=== PATIENT | male | born 1965 | race African-American/Black ===

== ENCOUNTER 2019-04-24 11:59 | Inpatient (IN) | payer OTHER ==
[2019-04-24 13:20] VITALS: BMI 26.6
--- NOTE | 2019-04-24 15:31 | HP ---
COWS - Scale Resting Pulse: 0= ND 80 or Below Sweatin= Chills/Flushing Restless Observation: 0= Sits Still Pupil Size: 0= Normal to Room Light Bone or Joint Aches: 0= None Runny Nose/ Eye Tearin= Nasal Congestion GI Upset > 30mins: 0= None Tremor Observation: 0= None Yawning Observation: 0= None Anxiety or Irritability: 1=Feels Anxious/Irritable Goose Flesh Skin: 0=Smooth Skin COWS Score: 3 CIWA Score Nausea/Vomitin-No Nausea/No Vomiting Muscle Tremors: 1-None Visible, but [place] Anxiety: 0-No Anxiety, at Ease Agitation: 0-Normal Activity Paroxysmal Sweats: 1-Minimal Palms Moist Orientation: 0-Oriented Tacttile Disturbances: 0-None Auditory Disturbances: 0-None Visual Disturbances: 0-None Headache: 0-None Present CIWA-Ar Total Score: 2 - Admission Criteria OASAS Guidelines: Admission for Medically Managed Detox: Requires at least one of the followin. CIWA greater than 12 2. Seizures within the past 24 hours 3. Delirium tremens within the past 24 hours 4. Hallucinations within the past 24 hours 5. Acute intervention needed for co occurring medical disorder 6. Acute intervention needed for co occurring psychiatric disorder 7. Severe withdrawal that cannot be handled at a lower level of care (continued vomiting, continued diarrhea, abnormal vital signs) requiring intravenous medication and/or fluids 8. Admission [facility] [place] Chief Complaint: 52 y/o M with PMH IDDM w/neuropathy, anxiety, Hep C (was on med but self d/c) who presents for detox heroin, cocaine, alcohol and benzos. Allergies/Adverse Reactions: Allergies Allergy/AdvReac Type Severity Reaction Status Date / Time Penicillins Allergy Intermediate Rash Verified 04/24/19 13:02 History of Present Illness: 52 y/o M with PMH IDDM w/neuropathy (on invokamet, januvia, basaglar), anxiety, Hep C (currently not on tx; self d/c), who presents for detox heroin, cocaine, alcohol and benzos. Per pt, states that he last used heroin 2 days ago. Used 5 bags via inhalation. Used to use IVDA in RUE 10 yrs ago, but no longer does. Noticed pruritic rash on RUE, which is the same location that he used to inject in 10 yrs ago. Uses at least 6-8 bags daily. Longest sobriety 5 yrs. At the time , pt was involved in his NA group. States that once he got involved a relationship, he stopped going to meeting as frequently and stopped going to the gym, so it caused him to relapse. Has never been in a methadone program, but would like to join one. Uses street methadone 60-90 mg at a time, last use 2 days ago. Used 30mg. Used to use subutex in past. Last cocaine use 2 days ago used >1.5g via smoking. Uses 20-30 dollars / day, every day. Last drink was 2 days ago drank 1 pint of vodka. Drinks 1/2 pint of vodka every day. Has never had alcohol withdrawal sz. Has blacked out in past. Last used xanax 3 days ago 2.5mg worth. Bought from the street and mixes it with his heroin to "achieve a better high" via inhalation. Uses 2-3x / week. Patient's first visit here. Was at [facility] detox 2008. Was also detox at [facility] in past. After detox, pt would like to go to rehab and join a methadone maintenance program. Would also like to pursue culinary arts and/or maintenance, and get involved in meeting again. He has a past sponsor. PMH: as above PSxH: quyen finch (10 yrs ago) meds: ranitidine, invokamet, januvia, basaglar, atorvastatin, lyrica, ammonium lact 12% lotion allergies: PCN - hives FH: denies SH: has been homeless for 3.5 months. was living in a 3/4 house before. 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 smokes 10- 12 cigarettes/ day for 3-4 yrs. alcohol, cocaine, heroin, benzo use as above. Exam Limitations: No Limitations - Ebola screening Have you traveled outside of the country in the last 21 days: No Have you had contact with anyone from an Ebola affected area: No Do you have a fever: No - Review of Systems Constitutional: Night Sweats, Unintentional Wgt. Loss EENT: reports: Blurred Vision, Nose Congestion Respiratory: reports: No Symptoms reported Cardiac: reports: No Symptoms Reported GI: reports: Poor Appetite : reports: No Symptoms Reported Musculoskeletal: reports: Joint Pain Integumentary: reports: No Symptoms Reported Neuro: reports: Headache, Numbness Endocrine: reports: No Symptoms Reported Hematology: reports: No Symptoms Reported Psychiatric: reports: No Sypmtoms Reported Patient History - Patient Medical History Hx Anemia: No Hx Asthma: No Hx Chronic Obstructive Pulmonary Disease (COPD): No Hx Cancer: No Hx Cardiac Disorders: No Hx Congestive Heart Failure: No Hx Hypertension: No Hx Hypercholesterolemia: No Hx Pacemaker: No HX Cerebrovascular Accident: No Hx Seizures: No Hx Dementia: No Hx Diabetes: Yes Hx Gastrointestinal Disorders: No Hx Liver Disease: No Hx Genitourinary Disorders: No Hx Sexually Transmitted Disorders: No Hx Renal Disease (ESRD): No Hx Thyroid Disease: No Hx Human Immunodeficiency Virus (HIV): No Hx Hepatitis C: No Hx Depression: No Hx Suicide Attempt: No Hx Bipolar Disorder: No Hx Schizophrenia: No Other Medical History: anxiety - Patient Surgical History Past Surgical History: Yes Hx Cholecystectomy: Yes - PPD History Documented Results: Negative w/o proof PPD to be Administered?: Yes - Reproductive History Patient is a Female of Child Bearing Age (11 -55 yrs old): No - Smoking Cessation Smoking history: Current every day smoker Have you smoked in the past 12 months: Yes Aproximately how many cigarettes per day: 4 Initiated information on smoking cessation: Yes 'Breaking Loose' booklet given: 04/24/19 - Substance & Tx. History Hx Alcohol Use: Yes Substance Use Type: Alcohol, Cocaine, Heroin Hx Substance Use Treatment: Yes ([facility] [place] [id number], [facility]) - Substances abused Alcohol Substance route: Oral Frequency: Daily Amount used: 1 pint of vodka Age of first use: 16 Date of last use: 04/22/19 Crack Substance route: Smoking Frequency: Daily Amount used: 1.5gm Age of first use: 18 Date of last use: 04/22/19 Heroin Substance route: Inhalation Frequency: Daily Amount used: 6-8 bags Age of first use: 20 Date of last use: 04/22/19 Family Disease History - Family Disease History Family History: Denies Admission Physical Exam BHS - Vital Signs Vital Signs: Vital Signs - 24 hr 04/24/19 12:54 Temperature 98.0 F Pulse Rate 61 Respiratory 16 Rate Blood Pressure 113/79 - Physical General Appearance: Yes: Within Normal Limits HEENTM: Yes: Within Normal Limits Respiratory: Yes: Lungs Clear Neck: Yes: Supple Breast: Yes: Breast Exam Deferred Cardiology: Yes: Regular Rate, S1, S2 Abdominal: Yes: Normal Bowel Sounds, Flat Genitourinary: Yes: Within Normal Limits Back: Yes: Within Normal Limits Musculoskeletal: Yes: full range of Motion Extremities: Yes: Other (old track beebe RUE +maculopapular rash RUE , skin picking from cocaine LE) 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 Integumentary: Yes: Dry, Warm, Rash - Diagnostic (1) Insulin dependent diabetes mellitus Current Visit: Yes Status: Chronic (2) Neuropathy Current Visit: Yes Status: Chronic (3) Opioid withdrawal Current Visit: Yes Status: Chronic (4) Cocaine dependence Current Visit: Yes Status: Acute (5) Alcohol withdrawal Current Visit: Yes Status: Acute (6) Benzodiazepine abuse Current Visit: Yes Status: Acute (7) IVDU (intravenous drug user) Current Visit: Yes Status: Chronic (8) Hepatitis C Current Visit: Yes Status: Chronic (9) Anxiety Current Visit: Yes Status: Chronic Cleared for Admission S - Detox or Rehab [facility] Level of Care: Medically Managed Detox Regimen/Protocol: Methadone/Valium Breathalyzer - Breathalyzer Breathalyzer: 0 Urine Drug Screen - Test Device Lot number: [id number] Expiration date: 02/10/21 - Control Is test valid?: Yes - Results Drug screen NEGATIVE: No Urine drug screen results: STEVIE-Cocaine, MET-Methamphetamine, FEN-Fentanyl, MTD- Methadone, BZO-Benzodiazepines Inpatient Rehab Admission - Rehab Decision to Admit Inpatient rehab admission?: No
[2019-04-24] MEDS ORDERED: diazePAM 5 MG TABLET PO PRN (16:01)
[2019-04-24] MEDS ORDERED: METHADONE HCL 10 MG TABLET (FOR DETOX USE ONLY) PO ONE ×2 (16:03→23:00)
[2019-04-24] MEDS ORDERED: cloNIDine HCL 0.1 MG TABLET PO PRN (16:03)
[2019-04-24] MEDS ORDERED: ACETAMINOPHEN 325 MG TABLET (FP) PO PRN (16:04)
[2019-04-24] MEDS ORDERED: IBUPROFEN 400 MG TABLET (FP) PO PRN (16:04)
[2019-04-24] MEDS ORDERED: MAGNESIUM HYDROX 2400MG/30ML ORAL SUSPENSION 30 ML CUP PO PRN (16:04)
[2019-04-24] MEDS ORDERED: MENTHOL/PHENOL 1 EACH UD MM PRN (16:04)
[2019-04-24] MEDS ORDERED: hydrOXYzine PAMOATE 25 MG CAPSULE (FP) PO PRN (16:04)
[2019-04-24] MEDS ORDERED: MAG HYDROX/AL HYDROX/SIMETH 30 ML UNIT-DOSE CUP PO PRN (16:04)
[2019-04-24] MEDS ORDERED: BISMUTH SUBSALICYLATE 524 MG/30 ML UD PO PRN (16:04)
[2019-04-24] MEDS ORDERED: AMMONIUM LACTATE 12% LOTION 225 GM BOTTLE TP SCH (16:30)
--- NOTE | 2019-04-24 16:43 | PN ---
Teaching Attending Note Name of Resident: Annette Petty ATTENDING PHYSICIAN STATEMENT I saw and evaluated the patient. I reviewed the resident's note and discussed the case with the resident. I agree with the resident's findings and plan as documented. SUBJECTIVE: pt requesting detox from etoh , heroin , benzodiazepine . Reports heroin use 2 days ago 5 bags via inhalation , denies IVDU > 10 years . Claims illicit use of " street methadone " 60 mg bottle , took 1/2 bottle 2 days ago and lost remainder . reports non- compliance w/ DM meds ( lost insulin ) , reports taking Invokamet . reports diarrhea, nausea . cocaine : 6-8 bags daily via inhalation denies IVDU , longest sobriety 5 years w/ NA meetings , latest cocaine use 2 days ago used >1.5g etoh : 1/2 pint vodka 2 days ago , denies blackouts, seizures or tremors , reports use 2-3 x/week . reports was at [facility] 2 days ago with d/c date 04/23/2019 tobacco : 1/2 ppd x 4 years PMHx : IDDM w/neuropathy (on invokamet, januvia, basaglar), anxiety, Hep C (no tx) . 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 NAD , mild UE tremors , other symptoms as above. ASSESSMENT AND PLAN: Benzo /etoh detox - on Valium taper opioid abuse - Methadone taper.
[2019-04-24] MEDS: diazePAM 5 MG TABLET PO SCH ×2 (17:33→22:15)
[2019-04-24] MEDS: INSULIN SLIDING SCALE (NOVOLOG) 1 VIAL SQ SCH ×2 (17:33→22:18)
[2019-04-24] MEDS: NICOTINE 7 MG/24 HOURS TOPICAL PATCH TD SCH (17:33)
[2019-04-24] MEDS: NICOTINE POLACRILEX 2 MG GUM BUC PRN ×2 (17:34→22:19)
[2019-04-24] MEDS ORDERED: PATIENT'S OWN MEDICATION (NON-FORMULARY) (Insulin Glargine,Hum.Rec.Anlog [Basaglar Kwikpen SQ SCH (22:00)
[2019-04-24] MEDS ORDERED: ATORVASTATIN CA 10 MG TABLET (FP) PO SCH (22:00)
[2019-04-24] MEDS: THIAMINE HCL 100 MG TABLET (FP) PO SCH (22:15)
[2019-04-24] MEDS: ATORVASTATIN CA 10 MG TABLET (FP) PO SCH (22:16)
[2019-04-24] MEDS: INSULIN (LEVEMIR) 100 UNITS/ML UNITS SQ SCH (22:17)
[2019-04-25] MEDS: diazePAM 5 MG TABLET PO PRN ×2 (02:23→19:34)
[2019-04-25] MEDS: INSULIN SLIDING SCALE (NOVOLOG) 1 VIAL SQ SCH ×4 (07:14→23:29)
[2019-04-25] MEDS: diazePAM 5 MG TABLET PO SCH ×3 (07:27→22:22)
--- NOTE | 2019-04-25 09:31 | EKG ---
Test Reason : Blood Pressure : / mmHG Vent. Rate : 054 BPM Atrial Rate : 054 BPM P-R Int : 182 ms QRS Dur : 086 ms QT Int : 426 ms P-R-T Axes : 043 043 030 degrees QTc Int : 403 ms SINUS BRADYCARDIA CANNOT RULE OUT ANTERIOR INFARCT , AGE UNDETERMINED ABNORMAL ECG NO PREVIOUS ECGS AVAILABLE Confirmed by LUCIANA ROBLES, ANTONIA ([id number]) on 04/25/2019 9:31:31 AM Referred By: Confirmed By:ANTONIA CHOWDHURY MD
[2019-04-25] MEDS ORDERED: METHADONE HCL 5 MG TABLET (FOR DETOX USE ONLY) PO ONE (10:00)
[2019-04-25] MEDS: NICOTINE 7 MG/24 HOURS TOPICAL PATCH TD SCH (10:33)
[2019-04-25] MEDS: AMMONIUM LACTATE 12% LOTION 225 GM BOTTLE TP SCH (10:34)
[2019-04-25] MEDS: RANITIDINE HCL 150 MG TABLET (FP) PO SCH (10:34)
[2019-04-25] MEDS: PRENATAL VITAMINS W/ FOLIC ACID TABLET (FP) PO SCH (10:34)
[2019-04-25 10:47] LABS: ALBUMIN 3.6 g/dl (3.4-5.0); BILIRUBIN,TOTAL 0.5 mg/dL (0.2-1); BLOOD UREA NITROGEN 13.7 mg/dL (7-18); CALCIUM 8.8 mg/dL (8.5-10.1); POTASSIUM 4.2 mmol/L (3.5-5.1)
[2019-04-25 10:48] LABS: HEMATOCRIT 37.6 % (35.4-49); HEMOGLOBIN 12.1 GM/dL (11.7-16.9); MCH 29.3 pg (25.7-33.7); MCHC 32.3 g/dl (32.0-35.9); MEAN CELL VOLUME 90.8 fl (80-96); MEAN PLT VOLUME 8.8 fl (7.5-11.1); RBC 4.14 M/mm3 (4.00-5.60); RDW 12.6 % (11.9-15.9); WHITE BLOOD COUNT 6.2 K/mm3 (4.0-10.0)
[2019-04-25 11:02] LABS: PLATELET COUNT 199 K/MM3 (134-434)
[2019-04-25] MEDS ORDERED: PROCHLORPERAZINE MALEATE 5 MG TABLET PO PRN (12:37)
[2019-04-25] MEDS ORDERED: PREGABALIN PO SCH (12:45)
--- NOTE | 2019-04-25 12:48 | PN ---
S CIWA - CIWA Score Nausea/Vomitin-No Nausea/No Vomiting Muscle Tremors: 2 Anxiety: 3 Agitation: 1-Slight > Activity Paroxysmal Sweats: 3 Orientation: 0-Oriented Tacttile Disturbances: 2-Mild Itch/Numbness/Burn Auditory Disturbances: 2-Mild Harshness/Frighten Visual Disturbances: 0-None Headache: 0-None Present CIWA-Ar Total Score: 13 BHS COWS - Scale Resting Pulse: 0= [place] 80 or Below Sweatin=Flushed/Facial Moisture Restless Observation: 0= Sits Still Pupil Size: 0= Normal to Room Light Bone or Joint Aches: 0= None Runny Nose/ Eye Tearin= Runny Nose/Eyes GI Upset > 30mins: 0= None Tremor Observation of Outstretched Hands: 2= Slight Tremor Visible Yawning Observation: 1= 1-2x During Session Anxiety or Irritability: 2=Irritable/Anxious Goose Flesh Skin: 3=Piloerection COWS Score: 12 S Progress Note (SOAP) Subjective: Stomach Cramping, Hot / Cold Sensations, Sweating, Body Aches, Nasal Congestion. Objective: PATIENT A & O X 3, OBSERVED AMBULATING ON UNIT UNASSISTED. IN NO ACUTE DISTRESS. 04/25/19 12:57 Vital Signs Temperature 97 F L 04/25/19 09:18 Pulse Rate 70 04/25/19 09:18 Respiratory Rate 18 04/25/19 09:18 Blood Pressure 116/79 04/25/19 09:18 O2 Sat by Pulse Oximetry (%) Laboratory Tests 04/25/19 04/25/19 04/25/19 07:50 07:50 07:50 WBC 6.2 RBC 4.14 Hgb 12.1 Hct 37.6 MCV 90.8 MCH 29.3 MCHC 32.3 RDW 12.6 Plt Count 199 MPV 8.8 Sodium 142 Potassium 4.2 Chloride 105 Carbon Dioxide 33 H Anion Gap 4 L BUN 13.7 Creatinine 1.0 Est GFR (CKD-EPI)AfAm 98.46 Est GFR (CKD-EPI)NonAf 84.95 Random Glucose 168 H Hemoglobin A1c % Calcium 8.8 Total Bilirubin 0.5 AST 33 ALT 32 Alkaline Phosphatase 119 H Total Protein 7.0 Albumin 3.6 RPR Titer Nonreactive 04/25/19 07:50 WBC RBC Hgb Hct MCV MCH MCHC RDW Plt Count MPV Sodium Potassium Chloride Carbon Dioxide Anion Gap BUN Creatinine Est GFR (CKD-EPI)AfAm Est GFR (CKD-EPI)NonAf Random Glucose Hemoglobin A1c % 6.6 H Calcium Total Bilirubin AST ALT Alkaline Phosphatase Total Protein Albumin RPR Titer LABS NOTED. Assessment: 04/25/19 12:58 WITHDRAWAL SYMPTOMS. Plan: CONTINUE DETOX.
[2019-04-25] MEDS: PREGABALIN 100 MG CAPSULE PO SCH ×2 (13:39→22:20)
[2019-04-25] MEDS: CANAGLIFLOZIN PO SCH (17:20)
[2019-04-25] MEDS: METFORMIN HCL PO SCH (17:20)
[2019-04-25] MEDS: [UNRECOGNIZED DRUG - OTHER] PO SCH (17:20)
[2019-04-25] MEDS: P-EPHED 60MG/TRIPROLIDI 2.5MG TABLET PO PRN (17:24)
[2019-04-25] MEDS: INSULIN (LEVEMIR) 100 UNITS/ML UNITS SQ SCH (22:20)
[2019-04-25] MEDS: THIAMINE HCL 100 MG TABLET (FP) PO SCH (22:21)
[2019-04-25] MEDS: ATORVASTATIN CA 10 MG TABLET (FP) PO SCH (22:21)
[2019-04-25] MEDS: MELATONIN 5 MG TABLETS PO PRN (22:24)
[2019-04-26] MEDS: P-EPHED 60MG/TRIPROLIDI 2.5MG TABLET PO PRN (00:53)
[2019-04-26] MEDS: diazePAM 5 MG TABLET PO SCH ×2 (05:40→17:19)
[2019-04-26] MEDS: CANAGLIFLOZIN PO SCH ×2 (07:50→17:19)
[2019-04-26] MEDS: [UNRECOGNIZED DRUG - OTHER] PO SCH ×2 (07:50→17:19)
[2019-04-26] MEDS: METFORMIN HCL PO SCH ×2 (07:50→17:19)
[2019-04-26] MEDS: INSULIN SLIDING SCALE (NOVOLOG) 1 VIAL SQ SCH ×4 (07:52→21:32)
[2019-04-26] MEDS ORDERED: METHADONE HCL 10 MG TABLET (FOR DETOX USE ONLY) PO ONE (10:00)
[2019-04-26] MEDS: RANITIDINE HCL 150 MG TABLET (FP) PO SCH (10:03)
[2019-04-26] MEDS: PRENATAL VITAMINS W/ FOLIC ACID TABLET (FP) PO SCH (10:03)
[2019-04-26] MEDS: PREGABALIN 100 MG CAPSULE PO SCH ×2 (10:04→22:30)
[2019-04-26] MEDS: NICOTINE 7 MG/24 HOURS TOPICAL PATCH TD SCH (10:04)
[2019-04-26] MEDS: AMMONIUM LACTATE 12% LOTION 225 GM BOTTLE TP SCH (10:05)
[2019-04-26] MEDS: diazePAM 5 MG TABLET PO PRN ×3 (10:09→19:10)
--- NOTE | 2019-04-26 13:12 | PN ---
[facility] CIWA - CIWA Score Nausea/Vomitin-Mild Nausea/No Vomiting Muscle Tremors: 2 Anxiety: 2 Agitation: 2 Paroxysmal Sweats: 1-Minimal Palms Moist Orientation: 0-Oriented Tacttile Disturbances: 0-None Auditory Disturbances: 0-None Visual Disturbances: 0-None Headache: 0-None Present CIWA-Ar Total Score: 8 BHS COWS - Scale Resting Pulse: 1= [place] 81-100 Sweatin= Chills/Flushing Restless Observation: 0= Sits Still Pupil Size: 0= Normal to Room Light Bone or Joint Aches: 1= Mild Discomfort Runny Nose/ Eye Tearin= Nasal Congestion GI Upset > 30mins: 1= Stomach Cramp Tremor Observation of Outstretched Hands: 1= Tremor [place], Not Seen Yawning Observation: 1= 1-2x During Session Anxiety or Irritability: 1=Feels Anxious/Irritable Goose Flesh Skin: 0=Smooth Skin COWS Score: 8 S Progress Note (SOAP) Subjective: 53 years old male admitted on 04/24/19 for alcohol and opiate withdrawal sx medical history of diabetes I hepatitis c and neuropathy doing well with valium and methadone detox protocol Objective: 04/26/19 13:13 Vital Signs Temperature 98.1 F 04/26/19 09:40 Pulse Rate 84 04/26/19 09:40 Respiratory Rate 20 04/26/19 09:40 Blood Pressure 113/74 04/26/19 09:40 O2 Sat by Pulse Oximetry (%) Laboratory Last Values WBC 6.2 K/mm3 (4.0-10.0) 04/25/19 07:50 RBC 4.14 M/mm3 (4.00-5.60) 04/25/19 07:50 Hgb 12.1 GM/dL (11.7-16.9) 04/25/19 07:50 Hct 37.6 % (35.4-49) 04/25/19 07:50 MCV 90.8 fl (80-96) 04/25/19 07:50 MCH 29.3 pg (25.7-33.7) 04/25/19 07:50 MCHC 32.3 g/dl (32.0-35.9) 04/25/19 07:50 RDW 12.6 % (11.9-15.9) 04/25/19 07:50 Plt Count 199 K/MM3 (134-434) 04/25/19 07:50 MPV 8.8 fl (7.5-11.1) 04/25/19 07:50 Sodium 142 mmol/L (136-145) 04/25/19 07:50 Potassium 4.2 mmol/L (3.5-5.1) 04/25/19 07:50 Chloride 105 mmol/L (98-107) 04/25/19 07:50 Carbon Dioxide 33 mmol/L (21-32) H 04/25/19 07:50 Anion Gap 4 MMOL/L (8-16) L 04/25/19 07:50 BUN 13.7 mg/dL (7-18) 04/25/19 07:50 Creatinine 1.0 mg/dL (0.55-1.3) 04/25/19 07:50 Est GFR (CKD-EPI)AfAm 98.46 04/25/19 07:50 Est GFR (CKD-EPI)NonAf 84.95 04/25/19 07:50 Random Glucose 168 mg/dL (74-106) H 04/25/19 07:50 Hemoglobin A1c % 6.6 % (4.2-6.3) H 04/25/19 07:50 Calcium 8.8 mg/dL (8.5-10.1) 04/25/19 07:50 Total Bilirubin 0.5 mg/dL (0.2-1) 04/25/19 07:50 AST 33 U/L (15-37) 04/25/19 07:50 ALT 32 U/L (13-61) 04/25/19 07:50 Alkaline Phosphatase 119 U/L (45-117) H 04/25/19 07:50 Total Protein 7.0 g/dl (6.4-8.2) 04/25/19 07:50 Albumin 3.6 g/dl (3.4-5.0) 04/25/19 07:50 RPR Titer Nonreactive (NONREACTIVE) 04/25/19 07:50 lab noted Assessment: 04/26/19 13:13 alcohol and opiate withdrawal sx Plan: continue alcohol and opiate detox
[2019-04-26] MEDS: THIAMINE HCL 100 MG TABLET (FP) PO SCH (22:30)
[2019-04-26] MEDS: ATORVASTATIN CA 10 MG TABLET (FP) PO SCH (22:30)
[2019-04-26] MEDS: INSULIN (LEVEMIR) 100 UNITS/ML UNITS SQ SCH (22:31)
[2019-04-26] MEDS: MELATONIN 5 MG TABLETS PO PRN (22:34)
[2019-04-27] MEDS ORDERED: diazePAM 5 MG TABLET PO ONE (06:00)
[2019-04-27] MEDS ORDERED: METHADONE HCL 5 MG TABLET (FOR DETOX USE ONLY) PO ONE (06:00)
[2019-04-27] MEDS: INSULIN SLIDING SCALE (NOVOLOG) 1 VIAL SQ SCH ×2 (08:03→11:32)
[2019-04-27] MEDS: CANAGLIFLOZIN PO SCH (08:04)
[2019-04-27] MEDS: METFORMIN HCL PO SCH (08:04)
[2019-04-27] MEDS: [UNRECOGNIZED DRUG - OTHER] PO SCH (08:04)
[2019-04-27 09:15] VITALS: BP 119/78; PULSE 92; TEMP 97.2
[2019-04-27] MEDS: AMMONIUM LACTATE 12% LOTION 225 GM BOTTLE TP SCH (10:27)
[2019-04-27] MEDS: RANITIDINE HCL 150 MG TABLET (FP) PO SCH (10:27)
[2019-04-27] MEDS: PREGABALIN 100 MG CAPSULE PO SCH (10:27)
[2019-04-27] MEDS: PRENATAL VITAMINS W/ FOLIC ACID TABLET (FP) PO SCH (10:29)
[2019-04-27] MEDS: NICOTINE 7 MG/24 HOURS TOPICAL PATCH TD SCH (10:29)
--- NOTE | 2019-04-27 13:26 | DS ---
[facility] Detox Discharge Summary Admission Date: 04/24/19 Discharge Date: 04/27/19 - History Present History: Alcohol Dependence, Opioid Dependence Additional Comments: 53 years old male admitted on 04/24/19 for alcohol and opiate withdrawal sx medical history of diabetes II and hepatitis c blood glucose well controlled throughout the detox period - Physical Exam Results Vital Signs: Vital Signs Temperature 97.2 F L 04/27/19 09:15 Pulse Rate 92 H 04/27/19 09:15 Respiratory Rate 18 04/27/19 09:15 Blood Pressure 119/78 04/27/19 09:15 O2 Sat by Pulse Oximetry (%) Pertinent Admission Physical Exam Findings: alcohol and opiate withdrawal sx Laboratory Last Values WBC 6.2 K/mm3 (4.0-10.0) 04/25/19 07:50 RBC 4.14 M/mm3 (4.00-5.60) 04/25/19 07:50 Hgb 12.1 GM/dL (11.7-16.9) 04/25/19 07:50 Hct 37.6 % (35.4-49) 04/25/19 07:50 MCV 90.8 fl (80-96) 04/25/19 07:50 MCH 29.3 pg (25.7-33.7) 04/25/19 07:50 MCHC 32.3 g/dl (32.0-35.9) 04/25/19 07:50 RDW 12.6 % (11.9-15.9) 04/25/19 07:50 Plt Count 199 K/MM3 (134-434) 04/25/19 07:50 MPV 8.8 fl (7.5-11.1) 04/25/19 07:50 Sodium 142 mmol/L (136-145) 04/25/19 07:50 Potassium 4.2 mmol/L (3.5-5.1) 04/25/19 07:50 Chloride 105 mmol/L (98-107) 04/25/19 07:50 Carbon Dioxide 33 mmol/L (21-32) H 04/25/19 07:50 Anion Gap 4 MMOL/L (8-16) L 04/25/19 07:50 BUN 13.7 mg/dL (7-18) 04/25/19 07:50 Creatinine 1.0 mg/dL (0.55-1.3) 04/25/19 07:50 Est GFR (CKD-EPI)AfAm 98.46 04/25/19 07:50 Est GFR (CKD-EPI)NonAf 84.95 04/25/19 07:50 POC Glucometer 168 UNITS (80-120) 04/27/19 11:30 Random Glucose 168 mg/dL (74-106) H 04/25/19 07:50 Hemoglobin A1c % 6.6 % (4.2-6.3) H 04/25/19 07:50 Calcium 8.8 mg/dL (8.5-10.1) 04/25/19 07:50 Total Bilirubin 0.5 mg/dL (0.2-1) 04/25/19 07:50 AST 33 U/L (15-37) 04/25/19 07:50 ALT 32 U/L (13-61) 04/25/19 07:50 Alkaline Phosphatase 119 U/L (45-117) H 04/25/19 07:50 Total Protein 7.0 g/dl (6.4-8.2) 04/25/19 07:50 Albumin 3.6 g/dl (3.4-5.0) 04/25/19 07:50 RPR Titer Nonreactive (NONREACTIVE) 04/25/19 07:50 lab noted - Treatment Hospital Course: Detox Protocol Followed, Detoxed Safely, Responded well, Discharged Condition Good, Rehab Referral Accepted Patient has Accepted a Rehab Referral to: community support approach - Medication Discharge Medications: Ambulatory Orders Ammonium Lactate Lotion [Lac-Hydrin 12] 1 applic TP ASDIR 04/24/19 Atorvastatin Ca [Lipitor] 10 mg PO DAILY 04/24/19 Canagliflozin/Metformin HCl [Invokamet 150-1,000 mg Tablet] 1 each PO BID Insulin Glargine,Hum.rec.anlog [Basaglar Kwikpen U-100] 15 unit SQ DAILY Ranitidine [Zantac -] 300 mg PO DAILY 04/24/19 Sitagliptin Phosphate [Januvia] 100 mg PO DAILY 04/24/19 Pregabalin [Lyrica -] 300 mg PO BID 04/25/19 - Diagnosis (1) Alcohol withdrawal Status: Acute Qualifiers: Complication of substance-induced condition: uncomplicated Qualified Code(s ): F10.230 - Alcohol dependence with withdrawal, uncomplicated (2) Hepatitis C Status: Chronic Qualifiers: Viral hepatitis chronicity: unspecified Hepatic coma status: without hepatic coma Qualified Code(s): B19.20 - Unspecified viral hepatitis C without hepatic coma (3) Insulin dependent diabetes mellitus Status: Chronic (4) Opioid withdrawal Status: Acute - AMA Did Patient Leave Against Medical Advice: No
== END 2019-04-27 11:47 | disposition other institution (70) | DRG 773 ==
LOC: YASAS 11:59 → Y3N 16:36
PROVIDERS: ADMIT Surgery; ATTEND Surgery
PROC: HZ2ZZZZ Detoxification Services for Substance Abuse Treatment (ICD-10-PCS; principal; 2019-04-24)
DX: F10.230 Alcohol dependence with withdrawal, uncomplicated (principal); F11.23 Opioid dependence with withdrawal; F14.20 Cocaine dependence, uncomplicated; F13.10 Sedative, hypnotic or anxiolytic abuse, uncomplicated; F41.9 Anxiety disorder, unspecified; E11.40 Type 2 diabetes mellitus with diabetic neuropathy, unspecified; Z79.4 Long term (current) use of insulin; B19.20 Unspecified viral hepatitis C without hepatic coma; Z88.0 Allergy status to penicillin; Z59.0 Homelessness
CPT/HCPCS: 36415; 80053; 82962; 83036; 85027; 86480; 86593; 93005; 93010

== ENCOUNTER 2019-04-27 13:19 | Inpatient (IN) | payer OTHER ==
--- NOTE | 2019-04-27 14:20 | HP ---
[facility] Rehab Assess/Revision - Admission History Admitted to Rehab from: [facility] Date of Admission to Rehab: 04/27/19 - Findings Detox History & Physical reviewed: Yes Concur with findings: Yes Comments/Additional Findings: transferred from detox to rehab admission as per protocol Inpatient Rehab Admission - Rehab Decision to Admit Inpatient rehab admission?: Yes - Initial Determination Are CD services needed?: Yes Free of communicable disease: Yes Not in need of hospitalization: Yes - Rehab Admission Criteria Previous failed treatment: Yes Poor recovery environment: Yes Comorbidities: Yes Lacks judgement: No Patient is meeting Inpatient Rehab admission criteria:: Yes
[2019-04-27] MEDS ORDERED: LOPERAMIDE HCL 2 MG CAPSULE PO PRN (14:21)
[2019-04-27] MEDS ORDERED: P-EPHED 60MG/TRIPROLIDI 2.5MG TABLET PO PRN (14:21)
[2019-04-27] MEDS ORDERED: MAGNESIUM CITRATE 300 ML BOTTLE PO PRN (14:21)
[2019-04-27] MEDS ORDERED: MENTHOL/PHENOL 1 EACH UD MM PRN (14:21)
[2019-04-27] MEDS ORDERED: IBUPROFEN 400 MG TABLET (FP) PO PRN (14:21)
[2019-04-27] MEDS ORDERED: guaiFENesin 200 MG/10 ML 10 ML UNIT-DOSE CUPS PO PRN (14:21)
[2019-04-27] MEDS ORDERED: MAGNESIUM HYDROX 2400MG/30ML ORAL SUSPENSION 30 ML CUP PO PRN (14:21)
[2019-04-27] MEDS ORDERED: NICOTINE 14 MG/24 HOURS TOPICAL PATCH TD PRN (14:30)
[2019-04-27] MEDS ORDERED: PT OWN MED DRAWER 7, Y5N ONE ×4 (15:58→20:37)
[2019-04-27] MEDS: AMMONIUM LACTATE 12% LOTION 225 GM BOTTLE TP SCH (18:22)
[2019-04-27] MEDS: hydrOXYzine PAMOATE 50 MG CAPSULE (FP) PO PRN (20:26)
[2019-04-27] MEDS: [UNRECOGNIZED DRUG - OTHER] PO SCH (21:20)
[2019-04-27] MEDS: CANAGLIFLOZIN PO SCH (21:20)
[2019-04-27] MEDS: METFORMIN HCL PO SCH (21:20)
[2019-04-27] MEDS: THIAMINE HCL 100 MG TABLET (FP) PO SCH (21:23)
[2019-04-27] MEDS: PREGABALIN 100 MG CAPSULE PO SCH (21:23)
[2019-04-27] MEDS ORDERED: INSULIN (LEVEMIR) 100 UNITS/ML UNITS SQ ONE ×2 (21:23→23:56)
[2019-04-27] MEDS: INSULIN (LEVEMIR) 100 UNITS/ML UNITS SQ SCH (21:24)
[2019-04-27] MEDS ORDERED: INSULIN (NOVOLOG) ASPART 100 UNITS/ML 10ML VIAL ONE (23:55)
[2019-04-28] MEDS: hydrOXYzine PAMOATE 50 MG CAPSULE (FP) PO PRN ×3 (05:34→22:07)
[2019-04-28] MEDS: ATORVASTATIN CA 10 MG TABLET (FP) PO SCH (10:55)
[2019-04-28] MEDS: PREGABALIN 100 MG CAPSULE PO SCH ×2 (10:55→22:03)
[2019-04-28] MEDS: PRENATAL VITAMINS W/ FOLIC ACID TABLET (FP) PO SCH (10:55)
[2019-04-28] MEDS: RANITIDINE HCL 150 MG TABLET (FP) PO SCH (10:55)
[2019-04-28] MEDS: NICOTINE 7 MG/24 HOURS TOPICAL PATCH TD SCH (10:55)
[2019-04-28] MEDS: METFORMIN HCL PO SCH ×2 (10:57→22:07)
[2019-04-28] MEDS ORDERED: PT OWN MED DRAWER 7, Y5N ONE ×3 (10:57→22:07)
[2019-04-28] MEDS: CANAGLIFLOZIN PO SCH ×2 (10:57→22:07)
[2019-04-28] MEDS: [UNRECOGNIZED DRUG - OTHER] PO SCH ×2 (10:57→22:07)
[2019-04-28] MEDS: AMMONIUM LACTATE 12% LOTION 225 GM BOTTLE TP SCH (17:29)
[2019-04-28] MEDS: THIAMINE HCL 100 MG TABLET (FP) PO SCH (22:04)
[2019-04-28] MEDS: INSULIN (LEVEMIR) 100 UNITS/ML UNITS SQ SCH (22:04)
[2019-04-28] MEDS: MELATONIN 5 MG TABLETS PO PRN (22:05)
[2019-04-29] MEDS: METFORMIN HCL PO SCH ×2 (10:19→22:17)
[2019-04-29] MEDS: ATORVASTATIN CA 10 MG TABLET (FP) PO SCH (10:19)
[2019-04-29] MEDS: NICOTINE 7 MG/24 HOURS TOPICAL PATCH TD SCH (10:19)
[2019-04-29] MEDS: PRENATAL VITAMINS W/ FOLIC ACID TABLET (FP) PO SCH (10:19)
[2019-04-29] MEDS: CANAGLIFLOZIN PO SCH ×2 (10:19→22:17)
[2019-04-29] MEDS: PREGABALIN 100 MG CAPSULE PO SCH ×2 (10:19→22:14)
[2019-04-29] MEDS: [UNRECOGNIZED DRUG - OTHER] PO SCH ×2 (10:19→22:17)
[2019-04-29] MEDS: RANITIDINE HCL 150 MG TABLET (FP) PO SCH (10:19)
[2019-04-29] MEDS: MAG HYDROX/AL HYDROX/SIMETH 30 ML UNIT-DOSE CUP PO PRN (11:18)
[2019-04-29] MEDS ORDERED: ONDANSETRON *ODT* 4 MG TABLET SL PRN (12:23)
--- NOTE | 2019-04-29 13:58 | PN ---
[facility] Progress Note Note: PATIENT REPORTS THAT HE FEELS INTERMITTENT MILD NAUSEA AND THAT "HIS STOMACH FEELS QUEASY." PATIENT BELIEVES THIS TO BE A LINGERING DETOX / WITHDRAWAL SYMPTOM. PATIENT DENIES ANY OTHER UNUSUAL OR WITHDRAWAL-TYPE SYMPTOMS AT THIS TIME, INCLUDING ABDOMINAL PAIN, DIARRHEA, AND CONSTIPATION. VS STABLE. PATIENT AFEBRILE. PRN ZOFRAN SL ORDERED FOR NAUSEA. PRN MYLANTA PO RECOMMENDED FOR UNSETTLED FEELING IN STOMACH. PATIENT ALSO ADVISED TO INCREASE DAILY PO WATER INTAKE. PATIENT VERBALIZED UNDERSTANDING OF ALL RECOMMENDATIONS PRESENTED TO HIM TODAY. Perri MONTES NP
[2019-04-29] MEDS: NICOTINE POLACRILEX 2 MG GUM BUC PRN (16:37)
[2019-04-29] MEDS: AMMONIUM LACTATE 12% LOTION 225 GM BOTTLE TP SCH (19:19)
[2019-04-29] MEDS: THIAMINE HCL 100 MG TABLET (FP) PO SCH (22:14)
[2019-04-29] MEDS: hydrOXYzine PAMOATE 50 MG CAPSULE (FP) PO PRN (22:15)
[2019-04-29] MEDS: INSULIN (LEVEMIR) 100 UNITS/ML UNITS SQ SCH (22:15)
[2019-04-29] MEDS ORDERED: PT OWN MED DRAWER 7, Y5N ONE (22:21)
[2019-04-30] MEDS: MAG HYDROX/AL HYDROX/SIMETH 30 ML UNIT-DOSE CUP PO PRN ×2 (06:32→16:34)
[2019-04-30] MEDS ORDERED: PT OWN MED DRAWER 7, Y5N ONE ×4 (09:09→23:02)
[2019-04-30] MEDS: [UNRECOGNIZED DRUG - OTHER] PO SCH ×2 (11:15→22:07)
[2019-04-30] MEDS: RANITIDINE HCL 150 MG TABLET (FP) PO SCH (11:15)
[2019-04-30] MEDS: PREGABALIN 100 MG CAPSULE PO SCH ×2 (11:15→22:06)
[2019-04-30] MEDS: CANAGLIFLOZIN PO SCH ×2 (11:15→22:07)
[2019-04-30] MEDS: METFORMIN HCL PO SCH ×2 (11:15→22:07)
[2019-04-30] MEDS: NICOTINE 7 MG/24 HOURS TOPICAL PATCH TD SCH (11:17)
[2019-04-30] MEDS: hydrOXYzine PAMOATE 50 MG CAPSULE (FP) PO PRN ×2 (11:17→19:09)
[2019-04-30] MEDS: PRENATAL VITAMINS W/ FOLIC ACID TABLET (FP) PO SCH (11:17)
[2019-04-30] MEDS: ATORVASTATIN CA 10 MG TABLET (FP) PO SCH (11:18)
--- NOTE | 2019-04-30 12:10 | PN ---
[facility] Progress Note Note: Patient states that he was diagnosed with bipolar disease in the past and prescribed medications but he did not take. Now feels "out of control." PE: general: appears anxious, no neurological deficits, PERRLA, skin clear, heart sounds regular, lungs clear Assessment: possible withdrawal symptoms vs. psychiatric diagnosis Plan: advised client to take vistaril medication and see if that helps, psych consult placed.
[2019-04-30] MEDS ORDERED: INSULIN (NOVOLOG) ASPART 100 UNITS/ML 10ML VIAL ONE (16:39)
[2019-04-30] MEDS: INSULIN SLIDING SCALE (NOVOLOG) 1 VIAL SQ SCH ×2 (16:40→22:09)
[2019-04-30] MEDS: MELATONIN 5 MG TABLETS PO PRN (22:08)
[2019-04-30] MEDS: THIAMINE HCL 100 MG TABLET (FP) PO SCH (22:08)
[2019-04-30] MEDS: INSULIN (LEVEMIR) 100 UNITS/ML UNITS SQ SCH (22:09)
[2019-05-01] MEDS: AMMONIUM LACTATE 12% LOTION 225 GM BOTTLE TP SCH (00:24)
[2019-05-01] MEDS: hydrOXYzine PAMOATE 50 MG CAPSULE (FP) PO PRN ×4 (05:15→21:19)
[2019-05-01] MEDS: INSULIN SLIDING SCALE (NOVOLOG) 1 VIAL SQ SCH ×4 (07:08→21:21)
--- NOTE | 2019-05-01 09:21 | CONSULT ---
[facility] Psychiatric Consult - Data Date of interview: 05/01/19 Admission source: 3N Identifying data: Mr Dolan is a 53 years old single Black male, father of 3 children, unemployed with no source, homeless seeking rehab treatment for alcohol, opioid, cocaine and Benzodiazepine Substance Abuse History: Reports history of alcohol, heroin, cocaine and xanax use. Refer to addiction counselor's summary for further information Medical History: Significant for dyslipidemia, insulin dependent diabetes mellitus, diabetic neuropathy, hepatis C, history of laparotomy cholecystectomy. Smokes 10-12 cigarettes daily Psychiatric History: Denies history of previous psychiatrist treatment. However reports that 2 weeks ago while at [address] for detox in [place], he was referred to [facility] for a psychiatric evaluation. Told sba underwriter that he expressed homicidal ideations towards his roomate who was doing things he did not like. After evaluation, he was discharged the same day and referred back to the program. He went back to the program and realized that he was administratively discharged. At present, reports feeling anxious and sleeping poorly. Told sba underwriter that he is currently ordered Vistaril with good response Physical/Sexual Abuse/Trauma History: Denies history of emotional, physical or sexual abuse as well as DV relationship. No service Additional Comment: Reports history of 3 previous misdemeanor arrests on charges of drug possession and paraphernalia. Denies being on probation at present Mental Status Exam - Mental Status Exam Alert and Oriented to: Time, Place, Person Cognitive Function: Fair Patient Appearance: Well Groomed Mood: Anxious (mildly) Affect: Appropriate Patient Behavior: Cooperative Speech Pattern: Clear Voice Loudness: Normal Thought Process: Intact, Goal Oriented Thought Disorder: Not Present Hallucinations: Denies Suicidal Ideation: Denies Homicidal Ideation: Denies Insight/Judgement: Fair Sleep: Poorly Appetite: Fair Muscle strength/Tone: Normal Gait/Station: Normal Psychiatric Findings - Problem List ([place] 1, 2,3) (1) Substance-induced anxiety disorder Current Visit: Yes Status: Acute (2) Substance-induced sleep disorder Current Visit: Yes Status: Acute (3) Alcohol dependence Current Visit: Yes Status: Acute (4) Alcohol dependence Current Visit: Yes Status: Acute (5) Opioid dependence Current Visit: Yes Status: Acute (6) Cocaine dependence Current Visit: No Status: Acute (7) Sedative, hypnotic or anxiolytic abuse Current Visit: Yes Status: Acute (8) Nicotine dependence Current Visit: Yes Status: Chronic (9) Hepatitis C Current Visit: No Status: Chronic Qualifiers: Viral hepatitis chronicity: unspecified Hepatic coma status: without hepatic coma Qualified Code(s): B19.20 - Unspecified viral hepatitis C without hepatic coma (10) Insulin dependent diabetes mellitus Current Visit: No Status: Chronic (11) Neuropathy Current Visit: No Status: Chronic (12) Dyslipidemia Current Visit: Yes Status: Chronic - Initial Treatment Plan Initial Treatment Plan: 1) Continue Hydroxyzine Pamoate 50 mg po Q 4hrs prn for anxiety. 2) Continue inpatient rehabilitation
[2019-05-01] MEDS: PREGABALIN 100 MG CAPSULE PO SCH ×2 (11:02→21:20)
[2019-05-01] MEDS: RANITIDINE HCL 150 MG TABLET (FP) PO SCH (11:03)
[2019-05-01] MEDS: NICOTINE 7 MG/24 HOURS TOPICAL PATCH TD SCH (11:03)
[2019-05-01] MEDS: ATORVASTATIN CA 10 MG TABLET (FP) PO SCH (11:04)
[2019-05-01] MEDS: CANAGLIFLOZIN PO SCH ×2 (11:06→21:20)
[2019-05-01] MEDS: [UNRECOGNIZED DRUG - OTHER] PO SCH ×2 (11:06→21:20)
[2019-05-01] MEDS ORDERED: PT OWN MED DRAWER 7, Y5N ONE (11:06)
[2019-05-01] MEDS: METFORMIN HCL PO SCH ×2 (11:06→21:20)
[2019-05-01] MEDS: AMMONIUM LACTATE 12% LOTION 225 GM BOTTLE TP PRN (11:07)
[2019-05-01] MEDS: PRENATAL VITAMINS W/ FOLIC ACID TABLET (FP) PO SCH (11:09)
[2019-05-01] MEDS: MAG HYDROX/AL HYDROX/SIMETH 30 ML UNIT-DOSE CUP PO PRN (11:21)
[2019-05-01] MEDS ORDERED: INSULIN (NOVOLOG) ASPART 100 UNITS/ML 10ML VIAL ONE ×2 (11:29→20:46)
[2019-05-01] MEDS: NICOTINE POLACRILEX 2 MG GUM BUC PRN (13:27)
[2019-05-01] MEDS: INSULIN (LEVEMIR) 100 UNITS/ML UNITS SQ SCH (21:20)
[2019-05-01] MEDS: MELATONIN 5 MG TABLETS PO PRN (21:20)
[2019-05-01] MEDS: THIAMINE HCL 100 MG TABLET (FP) PO SCH (21:20)
[2019-05-02] MEDS: MAG HYDROX/AL HYDROX/SIMETH 30 ML UNIT-DOSE CUP PO PRN (05:15)
[2019-05-02] MEDS: INSULIN SLIDING SCALE (NOVOLOG) 1 VIAL SQ SCH ×4 (07:04→21:25)
[2019-05-02] MEDS: RANITIDINE HCL 150 MG TABLET (FP) PO SCH (10:30)
[2019-05-02] MEDS: NICOTINE 7 MG/24 HOURS TOPICAL PATCH TD SCH (10:30)
[2019-05-02] MEDS: PREGABALIN 100 MG CAPSULE PO SCH ×2 (10:30→21:23)
[2019-05-02] MEDS: CANAGLIFLOZIN PO SCH ×2 (10:32→21:22)
[2019-05-02] MEDS: [UNRECOGNIZED DRUG - OTHER] PO SCH ×2 (10:32→21:22)
[2019-05-02] MEDS: METFORMIN HCL PO SCH ×2 (10:32→21:22)
[2019-05-02] MEDS: hydrOXYzine PAMOATE 50 MG CAPSULE (FP) PO PRN ×2 (10:32→19:50)
[2019-05-02] MEDS ORDERED: PT OWN MED DRAWER 7, Y5N ONE ×3 (10:34→22:22)
[2019-05-02] MEDS: ATORVASTATIN CA 10 MG TABLET (FP) PO SCH (10:34)
[2019-05-02] MEDS: PRENATAL VITAMINS W/ FOLIC ACID TABLET (FP) PO SCH (10:35)
[2019-05-02] MEDS: NICOTINE POLACRILEX 2 MG GUM BUC PRN (17:10)
[2019-05-02] MEDS: THIAMINE HCL 100 MG TABLET (FP) PO SCH (21:22)
[2019-05-02] MEDS: MELATONIN 5 MG TABLETS PO PRN (21:22)
[2019-05-02] MEDS: INSULIN (LEVEMIR) 100 UNITS/ML UNITS SQ SCH (21:22)
[2019-05-03] MEDS: hydrOXYzine PAMOATE 50 MG CAPSULE (FP) PO PRN ×3 (00:02→22:08)
[2019-05-03] MEDS: MAG HYDROX/AL HYDROX/SIMETH 30 ML UNIT-DOSE CUP PO PRN (03:30)
[2019-05-03] MEDS: INSULIN SLIDING SCALE (NOVOLOG) 1 VIAL SQ SCH ×4 (07:04→22:10)
[2019-05-03] MEDS: ACETAMINOPHEN 325 MG TABLET (FP) PO PRN ×2 (07:32→10:40)
--- NOTE | 2019-05-03 07:55 | PN ---
S Progress Note Note: Patient reports sleeping poorly despite taking Melatonin 10 mg at bedtime. Discussed with patient hypnotic properties of Belsomra and he agreed to take it
[2019-05-03] MEDS: PREGABALIN 100 MG CAPSULE PO SCH ×2 (10:38→22:08)
[2019-05-03] MEDS: RANITIDINE HCL 150 MG TABLET (FP) PO SCH (10:38)
[2019-05-03] MEDS: ATORVASTATIN CA 10 MG TABLET (FP) PO SCH (10:38)
[2019-05-03] MEDS: NICOTINE 7 MG/24 HOURS TOPICAL PATCH TD SCH (10:39)
[2019-05-03] MEDS: PRENATAL VITAMINS W/ FOLIC ACID TABLET (FP) PO SCH (10:39)
[2019-05-03] MEDS: CANAGLIFLOZIN PO SCH ×2 (10:40→22:10)
[2019-05-03] MEDS: [UNRECOGNIZED DRUG - OTHER] PO SCH ×2 (10:40→22:10)
[2019-05-03] MEDS: METFORMIN HCL PO SCH ×2 (10:40→22:10)
[2019-05-03] MEDS ORDERED: PT OWN MED DRAWER 7, Y5N ONE ×3 (10:41→22:18)
[2019-05-03] MEDS: SUVOREXANT 10 MG TABLET PO PRN (22:08)
[2019-05-03] MEDS: THIAMINE HCL 100 MG TABLET (FP) PO SCH (22:08)
[2019-05-03] MEDS: INSULIN (LEVEMIR) 100 UNITS/ML UNITS SQ SCH (22:10)
[2019-05-04] MEDS: INSULIN SLIDING SCALE (NOVOLOG) 1 VIAL SQ SCH ×4 (07:26→21:59)
[2019-05-04] MEDS: hydrOXYzine PAMOATE 50 MG CAPSULE (FP) PO PRN ×2 (07:35→19:41)
[2019-05-04] MEDS: MAG HYDROX/AL HYDROX/SIMETH 30 ML UNIT-DOSE CUP PO PRN ×2 (07:35→17:19)
[2019-05-04] MEDS: NICOTINE 7 MG/24 HOURS TOPICAL PATCH TD SCH (09:55)
[2019-05-04] MEDS: PRENATAL VITAMINS W/ FOLIC ACID TABLET (FP) PO SCH (09:55)
[2019-05-04] MEDS: RANITIDINE HCL 150 MG TABLET (FP) PO SCH (09:55)
[2019-05-04] MEDS: ATORVASTATIN CA 10 MG TABLET (FP) PO SCH (09:56)
[2019-05-04] MEDS: PREGABALIN 100 MG CAPSULE PO SCH ×2 (09:56→21:56)
[2019-05-04] MEDS: METFORMIN HCL PO SCH ×2 (09:56→21:59)
[2019-05-04] MEDS: CANAGLIFLOZIN PO SCH ×2 (09:56→21:59)
[2019-05-04] MEDS: [UNRECOGNIZED DRUG - OTHER] PO SCH ×2 (09:56→21:59)
[2019-05-04] MEDS ORDERED: PT OWN MED DRAWER 7, Y5N ONE ×2 (20:29→22:08)
[2019-05-04] MEDS: MELATONIN 5 MG TABLETS PO PRN (21:54)
[2019-05-04] MEDS: THIAMINE HCL 100 MG TABLET (FP) PO SCH (21:55)
[2019-05-04] MEDS: SUVOREXANT 10 MG TABLET PO PRN (21:56)
[2019-05-04] MEDS: INSULIN (LEVEMIR) 100 UNITS/ML UNITS SQ SCH (21:59)
[2019-05-05] MEDS: INSULIN SLIDING SCALE (NOVOLOG) 1 VIAL SQ SCH ×4 (07:58→21:46)
[2019-05-05] MEDS: hydrOXYzine PAMOATE 50 MG CAPSULE (FP) PO PRN ×3 (08:03→23:14)
[2019-05-05] MEDS: MAG HYDROX/AL HYDROX/SIMETH 30 ML UNIT-DOSE CUP PO PRN (08:04)
[2019-05-05] MEDS: PRENATAL VITAMINS W/ FOLIC ACID TABLET (FP) PO SCH (10:05)
[2019-05-05] MEDS: PREGABALIN 100 MG CAPSULE PO SCH ×2 (10:05→21:45)
[2019-05-05] MEDS: RANITIDINE HCL 150 MG TABLET (FP) PO SCH (10:05)
[2019-05-05] MEDS: NICOTINE 7 MG/24 HOURS TOPICAL PATCH TD SCH (10:06)
[2019-05-05] MEDS: CANAGLIFLOZIN PO SCH ×2 (10:07→21:45)
[2019-05-05] MEDS: [UNRECOGNIZED DRUG - OTHER] PO SCH ×2 (10:07→21:45)
[2019-05-05] MEDS: METFORMIN HCL PO SCH ×2 (10:07→21:45)
[2019-05-05] MEDS: ATORVASTATIN CA 10 MG TABLET (FP) PO SCH (10:08)
[2019-05-05] MEDS ORDERED: PT OWN MED DRAWER 7, Y5N ONE (10:08)
--- NOTE | 2019-05-05 12:05 | PN ---
[facility] Progress Note (SOAP) Subjective: c/o constipation and abd discomfort. Has not moved bowels for 3 days, has not used any of the PRN medications available. Objective: General: appropriate, able to make needs known, follow instructions Skin: clear, color consistent throughout trunk and extremities Heart: S1 S2 audible Lungs; Clear, respirations easy and unlabored Abd: soft, non-tender, non-distended, +BS all 4 quads Neuro: no deficits noted, CN 2-12 intact 05/05/19 12:02 Assessment: constipation patient does not want to use a laxative at this time. 05/05/19 12:04 05/05/19 12:04 Plan: Senna tabs ordered.
[2019-05-05] MEDS: ACETAMINOPHEN 325 MG TABLET (FP) PO PRN (13:08)
[2019-05-05] MEDS: SUVOREXANT 10 MG TABLET PO PRN (21:45)
[2019-05-05] MEDS: INSULIN (LEVEMIR) 100 UNITS/ML UNITS SQ SCH (21:46)
[2019-05-05] MEDS: SENNOSIDES 8.6MG TABLET (FP) PO SCH (21:47)
[2019-05-05] MEDS: THIAMINE HCL 100 MG TABLET (FP) PO SCH (21:47)
[2019-05-05] MEDS ORDERED: INSULIN (NOVOLOG) ASPART 100 UNITS/ML 10ML VIAL ONE (21:55)
[2019-05-06] MEDS: hydrOXYzine PAMOATE 50 MG CAPSULE (FP) PO PRN ×3 (07:33→21:53)
[2019-05-06] MEDS: INSULIN SLIDING SCALE (NOVOLOG) 1 VIAL SQ SCH ×4 (07:43→21:56)
[2019-05-06] MEDS ORDERED: PT OWN MED DRAWER 7, Y5N ONE ×2 (09:28→20:54)
[2019-05-06] MEDS: RANITIDINE HCL 150 MG TABLET (FP) PO SCH (10:45)
[2019-05-06] MEDS: PREGABALIN 100 MG CAPSULE PO SCH ×2 (10:45→21:53)
[2019-05-06] MEDS: CANAGLIFLOZIN PO SCH ×2 (10:45→21:54)
[2019-05-06] MEDS: METFORMIN HCL PO SCH ×2 (10:45→21:54)
[2019-05-06] MEDS: [UNRECOGNIZED DRUG - OTHER] PO SCH ×2 (10:45→21:54)
[2019-05-06] MEDS: PRENATAL VITAMINS W/ FOLIC ACID TABLET (FP) PO SCH (10:45)
[2019-05-06] MEDS: ATORVASTATIN CA 10 MG TABLET (FP) PO SCH (10:45)
[2019-05-06] MEDS: NICOTINE 7 MG/24 HOURS TOPICAL PATCH TD SCH (10:46)
[2019-05-06] MEDS: THIAMINE HCL 100 MG TABLET (FP) PO SCH (21:51)
[2019-05-06] MEDS: SENNOSIDES 8.6MG TABLET (FP) PO SCH (21:51)
[2019-05-06] MEDS: INSULIN (LEVEMIR) 100 UNITS/ML UNITS SQ SCH (21:56)
[2019-05-06] MEDS ORDERED: SUVOREXANT 10 MG TABLET PO PRN (22:00)
[2019-05-06] MEDS: ACETAMINOPHEN 325 MG TABLET (FP) PO PRN (22:24)
[2019-05-07] MEDS: hydrOXYzine PAMOATE 50 MG CAPSULE (FP) PO PRN ×3 (05:40→14:45)
[2019-05-07] MEDS: INSULIN SLIDING SCALE (NOVOLOG) 1 VIAL SQ SCH ×3 (07:00→16:53)
[2019-05-07] MEDS: METFORMIN HCL PO SCH ×2 (10:48→21:13)
[2019-05-07] MEDS: RANITIDINE HCL 150 MG TABLET (FP) PO SCH (10:48)
[2019-05-07] MEDS: [UNRECOGNIZED DRUG - OTHER] PO SCH ×2 (10:48→21:13)
[2019-05-07] MEDS: CANAGLIFLOZIN PO SCH ×2 (10:48→21:13)
[2019-05-07] MEDS: PRENATAL VITAMINS W/ FOLIC ACID TABLET (FP) PO SCH (10:48)
[2019-05-07] MEDS: NICOTINE 7 MG/24 HOURS TOPICAL PATCH TD SCH (10:49)
[2019-05-07] MEDS: ATORVASTATIN CA 10 MG TABLET (FP) PO SCH (10:49)
[2019-05-07] MEDS: PREGABALIN 100 MG CAPSULE PO SCH ×2 (10:49→21:12)
--- NOTE | 2019-05-07 14:50 | PN ---
S Progress Note Note: Patient continue to report sleeping poorly despite taking Belsomra 10 mg/hs. Will increase Belsomra dosage to 15 mg/hs
[2019-05-07] MEDS: SIMETHICONE 80 MG TAB.CHEW (FP) PO PRN (16:52)
[2019-05-07] MEDS: NICOTINE POLACRILEX 2 MG GUM BUC PRN (16:53)
[2019-05-07] MEDS ORDERED: PT OWN MED DRAWER 7, Y5N ONE (20:43)
[2019-05-07] MEDS: THIAMINE HCL 100 MG TABLET (FP) PO SCH (21:12)
[2019-05-07] MEDS: SENNOSIDES 8.6MG TABLET (FP) PO SCH (21:12)
[2019-05-07] MEDS: INSULIN (LEVEMIR) 100 UNITS/ML UNITS SQ SCH (21:14)
[2019-05-07] MEDS ORDERED: SUVOREXANT 15 MG TABLET PO PRN (22:00)
[2019-05-08] MEDS: hydrOXYzine PAMOATE 50 MG CAPSULE (FP) PO PRN ×2 (04:28→13:41)
[2019-05-08] MEDS: SIMETHICONE 80 MG TAB.CHEW (FP) PO PRN (04:28)
[2019-05-08] MEDS: MAG HYDROX/AL HYDROX/SIMETH 30 ML UNIT-DOSE CUP PO PRN (04:28)
[2019-05-08 06:59] VITALS: BP 132/78; PULSE 101; TEMP 98.4
[2019-05-08] MEDS: AMMONIUM LACTATE 12% LOTION 225 GM BOTTLE TP PRN (07:19)
[2019-05-08] MEDS: INSULIN SLIDING SCALE (NOVOLOG) 1 VIAL SQ SCH ×2 (07:21→16:30)
[2019-05-08] MEDS: NICOTINE 7 MG/24 HOURS TOPICAL PATCH TD SCH (10:12)
[2019-05-08] MEDS: PRENATAL VITAMINS W/ FOLIC ACID TABLET (FP) PO SCH (10:12)
[2019-05-08] MEDS: PREGABALIN 100 MG CAPSULE PO SCH (10:12)
[2019-05-08] MEDS: ATORVASTATIN CA 10 MG TABLET (FP) PO SCH (10:12)
[2019-05-08] MEDS: RANITIDINE HCL 150 MG TABLET (FP) PO SCH (10:12)
[2019-05-08] MEDS: CANAGLIFLOZIN PO SCH (10:14)
[2019-05-08] MEDS: METFORMIN HCL PO SCH (10:14)
[2019-05-08] MEDS: [UNRECOGNIZED DRUG - OTHER] PO SCH (10:14)
--- NOTE | 2019-05-08 11:47 | PN ---
[facility] Progress Note Note: PATIENT SCHEDULED FOR DISCHARGE FROM INPATIENT REHAB 05/11/2019. PATIENT' S AFTERCARE ARRANGED FOR CREATE IN-PATIENT LONG-TERM TREATMENT FOR Saturday. PATIENT ADMITTED 04/24/19 TO DETOX FOR ALCOHOL, BZO AND OPIOD DEPENDENCE AND THEN TRANSFERRED TO REHAB. DURING REHAB ADMISSION, PATIENT HAD EPISODES OF AGITATION, INSOMNIA AND ANXIETY. PATIENT SEEN BY PSYCHIATRY AND STARTED ON VISTARIL FOR ANXIETY AND BELSOMRA FOR INSOMNIA. PATIENT'S PMH INCLUDES DM, PERIPHERAL NEUROPATHY, GERD, HLD AND NICOTINE DEPENDENCE. PATIENT IS MEDICALLY STABLE AT THIS TIME AND DENIES SI/HI. Laboratory Tests 04/27/19 04/27/19 04/28/19 17:12 21:19 05:35 POC Glucometer 182 161 146 04/28/19 04/29/19 04/29/19 12:07 07:48 11:20 POC Glucometer 212 141 261 04/29/19 04/29/19 04/30/19 16:39 22:14 06:30 POC Glucometer 169 272 192 04/30/19 04/30/19 04/30/19 12:07 16:37 22:02 POC Glucometer 235 245 307 05/01/19 05/01/19 05/01/19 06:54 11:25 16:39 POC Glucometer 129 296 165 05/01/19 05/02/19 05/02/19 20:44 06:41 11:56 POC Glucometer 231 115 196 05/03/19 05/03/19 05/03/19 05:50 12:05 22:06 POC Glucometer 129 281 151 05/04/19 05/04/19 05/05/19 11:56 21:54 11:25 POC Glucometer 135 170 218 05/05/19 05/06/19 05/06/19 16:47 07:32 21:51 POC Glucometer 139 139 214 05/07/19 05/07/19 06:36 16:50 POC Glucometer 143 203 Vital Signs Temperature 98.4 F 05/08/19 06:58 Pulse Rate 101 H 05/08/19 06:58 Respiratory Rate 20 05/08/19 06:58 Blood Pressure 132/78 05/08/19 06:58 O2 Sat by Pulse Oximetry (%) Ambulatory Orders Ammonium Lactate Lotion [Lac-Hydrin 12] 1 applic TP ASDIR 04/24/19 Insulin Glargine,Hum.rec.anlog [Basaglar Kwikpen U-100] 15 unit SQ DAILY Atorvastatin Ca [Lipitor] 10 mg PO DAILY #30 tablet 05/08/19 Canagliflozin/Metformin HCl [Invokamet 150-1,000 mg Tablet] 1 each PO BID #60 tablet 05/08/19 Pregabalin [Lyrica -] 300 mg PO BID #60 capsule MDD 600MG 05/08/19 Ranitidine [Zantac -] 300 mg PO DAILY #30 tablet 05/08/19 Simethicone [Mylicon -] 80 mg PO QID PRN #60 tab.chew 05/08/19 Sitagliptin Phosphate [Januvia] 100 mg PO DAILY #30 tablet 05/08/19 PE: ALERT AND ORIENTED X 3 SKIN WARM AND DRY +PERRLA, EOMS INTACT BL CAR S1S2 RESP CTA BL EXT FULL ROM, NO VISIBLE EDEMA AMB AD MARJORIE A/P: OPIOD DEPENDENCE BZO DEPENDENCE ETOH DEPENDENCE CONTINUE REHAB PATIENT SCHEDULED FOR D/C 05/11/19
--- NOTE | 2019-05-08 13:54 | PN ---
S Progress Note Note: Patient complains of feeling very irritable, anxious despite taking Vistaril 50 mg po Q 4hrs prn. Told mortgage or loan underwriter that he has a bad temper and easily gets angry. He was told that he may very well be that he has an anger issue and needs to address it by participating in anger management. Discussed with patient anxiolytic properties of Buspar and he agreed to try it
[2019-05-08] MEDS ORDERED: busPIRone HCL 10 MG TABLET (FP) PO SCH (14:00)
--- NOTE | 2019-05-08 17:01 | PN ---
[facility] Progress Note Note: Alert and oriented. Patient states needs to go home today instead of 05/11 to get prepared for Saturday. States is picking up prescriptions. See discharge note written by Tal Hope NP om 05/08.
== END 2019-05-08 16:53 | disposition home or self-care (01) | DRG 772 ==
LOC: YASAS 13:19 → Y3W 13:20
PROVIDERS: ADMIT Neuromusculoskeletal Medicine & OMM; ATTEND Neuromusculoskeletal Medicine & OMM
PROC: HZ42ZZZ Group Counseling for Substance Abuse Treatment, Cognitive-Behavioral (ICD-10-PCS; principal; 2019-04-27)
DX: F11.20 Opioid dependence, uncomplicated (principal); F10.20 Alcohol dependence, uncomplicated; F13.20 Sedative, hypnotic or anxiolytic dependence, uncomplicated; F14.20 Cocaine dependence, uncomplicated; F17.210 Nicotine dependence, cigarettes, uncomplicated; F19.280 Other psychoactive substance dependence with psychoactive substance-induced anxiety disorder; F19.282 Other psychoactive substance dependence with psychoactive substance-induced sleep disorder; F31.9 Bipolar disorder, unspecified; B19.20 Unspecified viral hepatitis C without hepatic coma; E78.5 Hyperlipidemia, unspecified; E11.9 Type 2 diabetes mellitus without complications; Z79.4 Long term (current) use of insulin; G62.9 Polyneuropathy, unspecified; Z59.0 Homelessness
CPT/HCPCS: 82962

== ENCOUNTER 2022-06-29 13:08 | Inpatient (IN) | payer OTHER ==
[2022-06-29 14:15] VITALS: BMI 29.4
[2022-06-29] MEDS ORDERED: IBUPROFEN 400 MG TABLET (FP) PO PRN (19:42)
[2022-06-29] MEDS ORDERED: BENZOCAINE/MENTHOL (CHLORASEPTIC ) LOZENGE MM PRN (19:42)
[2022-06-29] MEDS ORDERED: MAG HYDROX/AL HYDROX/SIMETH 30 ML UNIT-DOSE CUP PO PRN (19:42)
[2022-06-29] MEDS ORDERED: BISMUTH SUBSALICYLATE 524 MG/30 ML PO PRN (19:42)
[2022-06-29] MEDS ORDERED: ACETAMINOPHEN 325 MG TABLET (FP) PO PRN ×2 (19:42)
[2022-06-29] MEDS ORDERED: NALOXONE HCL (KLOXXADO) 8 MG SPRAY NS PRN (19:42)
[2022-06-29] MEDS ORDERED: IBUPROFEN 600 MG TABLET (FP) PO PRN (19:42)
[2022-06-29] MEDS ORDERED: NICOTINE 10 MG CARTRIDGE (INHALER) IH PRN (19:42)
[2022-06-29] MEDS ORDERED: NICOTINE POLACRILEX 2 MG GUM BUC PRN (19:42)
[2022-06-29] MEDS ORDERED: MAGNESIUM HYDROX 2400MG/30ML ORAL SUSPENSION 30 ML CUP PO PRN (19:42)
[2022-06-29] MEDS ORDERED: LOPERAMIDE HCL 2 MG CAPSULE PO PRN (19:42)
[2022-06-29] MEDS ORDERED: ONDANSETRON *ODT* 4 MG TABLET SL PRN (19:42)
[2022-06-29] MEDS ORDERED: DICYCLOMINE HCL 10 MG CAPSULE PO PRN (19:42)
[2022-06-29] MEDS ORDERED: MAGNESIUM CITRATE 300 ML BOTTLE PO PRN (19:42)
[2022-06-29] MEDS ORDERED: hydrOXYzine PAMOATE 25 MG CAPSULE (FP) PO SCH (22:00)
[2022-06-29] MEDS: MELATONIN 5 MG TABLETS PO SCH (22:43)
[2022-06-29] MEDS: METHOCARBAMOL 500 MG TABLET PO PRN (22:44)
[2022-06-29] MEDS: THIAMINE HCL 100 MG TABLET (FP) PO SCH (22:44)
[2022-06-30] MEDS ORDERED: methaDONE HCL 10 MG TABLET (FOR DETOX USE ONLY) PO ONE (01:23)
[2022-06-30] MEDS: cloNIDine HCL 0.1 MG TABLET PO PRN (06:45)
[2022-06-30 09:39] LABS: HEMATOCRIT 41.4 % (35.4-49); HEMOGLOBIN 13.5 GM/dL (11.7-16.9); MCH 28.8 pg (25.7-33.7); MCHC 32.5 g/dl (32.0-35.9); MEAN CELL VOLUME 88.7 fl (80-96); MEAN PLT VOLUME 8.2 fl (7.5-11.1); PLATELET COUNT 166 10^3/uL (134-434); RBC 4.67 M/mm3 (4.00-5.60); RDW 12.7 % (11.9-15.9); WHITE BLOOD COUNT 4.2 K/mm3 (4.0-10.0)
[2022-06-30] MEDS ORDERED: methaDONE HCL 10 MG TABLET PO ONE (09:47)
[2022-06-30 10:04] LABS: CALCIUM 9.1 mg/dL (8.5-10.1)
[2022-06-30 10:06] LABS: ALBUMIN 3.6 g/dl (3.4-5.0)
[2022-06-30 10:09] LABS: CREATININE 0.8 mg/dL (0.55-1.3)
[2022-06-30 10:10] LABS: BILIRUBIN,TOTAL 0.7 mg/dL (0.2-1)
[2022-06-30] MEDS: METHOCARBAMOL 500 MG TABLET PO PRN ×2 (10:25→22:59)
[2022-06-30] MEDS: PRENATAL VITAMINS W/ FOLIC ACID TABLET (FP) PO SCH (10:26)
[2022-06-30] MEDS: clonazePAM 0.5 MG ODT TABLETS SL PRN ×3 (10:26→23:00)
[2022-06-30] MEDS: THIAMINE HCL 100 MG TABLET (FP) PO SCH (23:00)
[2022-06-30] MEDS: MELATONIN 5 MG TABLETS PO SCH (23:00)
[2022-06-30] MEDS: INSULIN SLIDING SCALE (NOVOLOG) 1 VIAL SQ SCH ×2 (23:07→23:10)
[2022-06-30] MEDS ORDERED: INSULIN (NOVOLOG) ASPART 100 UNITS/ML 10ML VIAL ONE (23:40)
[2022-07-01] MEDS ORDERED: INSULIN (NOVOLOG) ASPART 100 UNITS/ML 10ML VIAL ONE (00:11)
[2022-07-01] MEDS: cloNIDine HCL 0.1 MG TABLET PO PRN (06:00)
[2022-07-01] MEDS: clonazePAM 0.5 MG ODT TABLETS SL PRN (06:03)
[2022-07-01 06:07] VITALS: TEMP 96.9
[2022-07-01] MEDS: INSULIN SLIDING SCALE (NOVOLOG) 1 VIAL SQ SCH ×2 (07:52→11:14)
[2022-07-01 09:50] VITALS: BP 155/88; PULSE 80; RESP 19
[2022-07-01] MEDS: PRENATAL VITAMINS W/ FOLIC ACID TABLET (FP) PO SCH (09:53)
[2022-07-01] MEDS ORDERED: amLODIPine BESYLATE 5 MG TABLET (FP) PO SCH (11:45)
[2022-07-01] MEDS ORDERED: metFORMIN HCL 500 MG TABLET (FP) PO SCH (16:30)
[2022-07-02] MEDS ORDERED: sitaGLIPtin PHOSPHATE 50 MG TABLET PO SCH (07:00)
[2022-07-02] MEDS ORDERED: INSULIN (LEVEMIR) 100 UNITS/ML UNITS SQ SCH (07:00)
[2022-07-02] MEDS ORDERED: methaDONE HCL 10 MG TABLET (FOR DETOX USE ONLY) PO ONE (10:00)
[2022-07-04] MEDS ORDERED: methaDONE HCL 10 MG TABLET (FOR DETOX USE ONLY) PO ONE (10:00)
== END 2022-07-01 11:45 | disposition home or self-care (01) | DRG 773 ==
LOC: YASAS 13:08 → Y6N 19:48 → UNDOADMIN 19:48
PROVIDERS: ADMIT Allergy & Immunology; ATTEND Surgery
PROC: HZ2ZZZZ Detoxification Services for Substance Abuse Treatment (ICD-10-PCS; principal; 2022-06-29)
DX: F11.23 Opioid dependence with withdrawal (principal); F14.20 Cocaine dependence, uncomplicated; F17.210 Nicotine dependence, cigarettes, uncomplicated; I10 Essential (primary) hypertension; E78.5 Hyperlipidemia, unspecified; E11.42 Type 2 diabetes mellitus with diabetic polyneuropathy; Z79.4 Long term (current) use of insulin; Z86.19 Personal history of other infectious and parasitic diseases; Z88.0 Allergy status to penicillin; Z59.00 Homelessness unspecified
CPT/HCPCS: 36415; 80053; 82962; 85027; 86593; 86780; C9803-CS; U0003; U0005